=== PATIENT | female | born 1995 | race Two or more races ===

== ENCOUNTER 2019-06-27 15:30 | Inpatient (IN) | payer OTHER ==
[~2019-06-27] VITALS: Ht 157.5 cm; Wt 2.7 kg
[2019-07-05] MEDS ORDERED: PRENATAL FORMU1 EAC1 PO (06:47)
[2019-07-05] MEDS ORDERED: FOLIC ACID1 MG PO (06:48)
== END 2019-07-08 13:06 | disposition home or self-care (01) | DRG 788 ==
LOC: OB/GYN 07-03 15:15 → O/R 07-05 06:18 → OB/GYN 07-05 11:49
PROVIDERS: ADMIT Obstetrics & Gynecology
PROC: 4A1HXCZ Monitoring of Products of Conception, Cardiac Rate, External Approach (ICD-10-PCS; 2019-07-05)
PROC: 10D00Z1 Extraction of Products of Conception, Low, Open Approach (ICD-10-PCS; principal; 2019-07-05 09:00)
DX: O82 Encounter for cesarean delivery without indication (principal); Z3A.38 38 weeks gestation of pregnancy; Z37.0 Single live birth

== ENCOUNTER → 2020-07-10 | Outpatient (CLI) | payer OTHER ==
[~2020-07-10] MED LIST: FOLIC ACID1 MG PO; PRENATAL FORMU1 EAC1 PO
== END | disposition home or self-care (01) ==
LOC: PRENATAL 10:35
PROVIDERS: ATTEND Obstetrics & Gynecology Maternal & Fetal Medicine
DX: O35.3XX1 Maternal care for (suspected) damage to fetus from viral disease in mother, fetus 1 (principal); O98.511 Other viral diseases complicating pregnancy, first trimester; O35.0XX1 Maternal care for (suspected) central nervous system malformation in fetus, fetus 1; O34.211 Maternal care for low transverse scar from previous cesarean delivery; Z36.89 Encounter for other specified antenatal screening

== ENCOUNTER 2020-10-19 20:29 | Outpatient (CLI) | payer OTHER | END 2020-10-20 16:27 | disposition home or self-care (01) | LOC: OBS/DEL 20:29 | PROVIDERS: ATTEND Obstetrics & Gynecology | DX: O26.893 Other specified pregnancy related conditions, third trimester (principal); R10.2 Pelvic and perineal pain; O34.211 Maternal care for low transverse scar from previous cesarean delivery ==

== ENCOUNTER 2020-10-24 09:45 | Inpatient (IN) | payer OTHER ==
[~2020-10-24] VITALS: Ht 157.5 cm; Wt 3.2 kg
== END 2020-11-02 14:26 | disposition home or self-care (01) | DRG 785 ==
LOC: RECOVERY 10-29 09:45 → O/R 10-30 06:16 → OB/GYN 10-30 08:30
PROVIDERS: ADMIT Obstetrics & Gynecology; ATTEND Obstetrics & Gynecology
PROC: 0UB70ZZ Excision of Bilateral Fallopian Tubes, Open Approach (ICD-10-PCS; 2020-10-30)
PROC: 4A1HXFZ Monitoring of Products of Conception, Cardiac Rhythm, External Approach (ICD-10-PCS; 2020-10-30)
PROC: 10D00Z1 Extraction of Products of Conception, Low, Open Approach (ICD-10-PCS; principal; 2020-10-30 08:30)
DX: O34.211 Maternal care for low transverse scar from previous cesarean delivery (principal); Z30.2 Encounter for sterilization; Z3A.37 37 weeks gestation of pregnancy; Z37.0 Single live birth